=== PATIENT | female | born 1990 | race Caucasian/White ===

== ENCOUNTER 2016-05-02 07:46 | Emergency (ER) | payer SELFPAY ==
[~2016-05-02 07:46] MED LIST: AMOXICILLIN500 M3 PO; ANAPROX DS550 MG PO; CIPRO250 MG PO; EPI-PEN1 MG/ML MR; MACROBID100 M1 PO; MEDROL DOSEPAK4 MG PO; MOTRIN,RUFEN800 MG PO; MOTRIN800 MG PO; NKHM PO; PERCOCET 325 MG1 TA2 PO; PHENERGAN25 M1 PO; PNV-DHA1 SGL PO; PREDNICOT10 MG PO; PRENATAL1 TA1 PO; TRAMADOL HCL50 MG PO; ULTRAM50 MG PO
[2016-05-02] MEDS ORDERED: EPIPEN 2-PAK1 MG/ML IJ (09:06)
== END 2016-05-02 09:30 | disposition home or self-care (01) ==
LOC: ED 07:46
DX: L23.9 Allergic contact dermatitis, unspecified cause (principal); Z88.6 Allergy status to analgesic agent

== ENCOUNTER 2022-10-06 22:26 | Emergency (ER) | payer MEDICAID ==
[~2022-10-06] VITALS: Ht 170.1 cm; Wt 78.9 kg
[~2022-10-06 22:26] MED LIST changes: +EPIPEN 2-PAK1 MG/ML IJ
[2022-10-06 23:05] LABS: BILIRUBIN Negative (Negative); BLOOD 3+ (Negative); CLARITY Cloudy (Clear); COLOR Yellow (Yellow); GLUCOSE Negative (Negative); KETONE Trace (Negative); LEUKO ESTERASE 2+ (Negative); NITRITE Negative (Negative); SPECIFIC GRAVITY >= 1.030 (1.001-1.030)
[2022-10-06 23:12] LABS: URINE AMPHETAMINES Negative (1000ng/ml); URINE BARBITURATES Negative (200ng/ml); URINE BENZODIAZEPINES Negative (200ng/ml); URINE CANNABINOIDS (THC) Positive (50ng/ml); URINE COCAINE Negative (300ng/ml); URINE METHADONE Negative (300ng/ml); URINE OPIATES Negative (300ng/ml); URINE PHENCYCLIDINE Negative (25ng/ml)
[2022-10-06 23:13] LABS: BASO % 0.3 % (0.0-1.0); EOS # 0.2 10*3/uL (0.0-0.4); EOS % 1.7 % (1.0-4.0); HEMATOCRIT 45.3 % (37.0-47.0); LYMPH # 3.5 10*3/uL (1.3-4.4); LYMPH % 33.7 % (27.0-41.0); MEAN CELL VOLUME 92.3 fl (81.0-99.0); MEAN CORPUSCULAR HGB 30.3 pg (27.0-31.0); MEAN CORPUSCULAR HGB CONC 32.9 g/dl (33.0-37.0); MEAN PLATELET VOLUME 9.3 fl (9.6-12.3); MONO # 0.5 10*3/uL (0.1-1.0); MONO % 4.7 % (3.0-9.0); NEUT # 6.2 10*3/uL (2.3-7.9); NEUT % 59.4 % (47.0-73.0); PLATELET COUNT AUTOMATED 331 10*3/uL (130-400); RED BLOOD COUNT 4.91 10*6/uL (4.10-5.10); RED CELL DISTRI WIDTH 12.6 % (0-14.5); WHITE BLOOD COUNT 10.4 10*3/uL (4.8-10.8)
[2022-10-06 23:17] LABS: EPITHELIAL CELLS 31-40; RBC 41-50 rbc/hpf (0-2); WBC 31-40 wbc/hpf (0-5)
[2022-10-06 23:18] LABS: BACTERIA TRACE
[2022-10-06 23:24] LABS: ACT PARTIAL THROMBO TIME 25.8 SECONDS (20.0-32.1)
[2022-10-06 23:38] LABS: ALKALINE PHOSPHATASE 115 U/L (46-116); BUN 8 mg/dl (9-23); CHLORIDE 110 mmol/L (98-107); LIPASE 40 U/L (12-53); POTASSIUM 3.6 mmol/L (3.4-5.1); SGPT/ALT 12 U/L (10-49); TOTAL PROTEIN 7.5 gm/dL (6.0-8.0)
[2022-10-06 23:44] LABS: ETHYL ALCOHOL < 3.0 mg/dl (<3)
[2022-10-07] MEDS ORDERED: CIPRO500 MG PO (00:03)
[2022-10-07] MEDS ORDERED: METRONIDAZOLE500 M1 PO (00:03)
== END 2022-10-07 00:27 | disposition home or self-care (01) ==
LOC: ED 22:26
PROVIDERS: Internal Medicine
DX: K52.9 Noninfective gastroenteritis and colitis, unspecified (principal); J45.909 Unspecified asthma, uncomplicated; F31.9 Bipolar disorder, unspecified; Z88.6 Allergy status to analgesic agent; Z98.890 Other specified postprocedural states; Z79.899 Other long term (current) drug therapy

== ENCOUNTER → 2022-11-30 | Outpatient (CLI) | payer MEDICAID ==
[~2022-11-30] MED LIST changes: +CIPRO500 MG PO; +METRONIDAZOLE500 M1 PO
[2022-11-30 09:53] LABS: HEMATOCRIT 44.4 % (37.0-47.0); MEAN CELL VOLUME 90.4 fl (81.0-99.0); MEAN CORPUSCULAR HGB 30.3 pg (27.0-31.0); MEAN CORPUSCULAR HGB CONC 33.6 g/dl (33.0-37.0); MEAN PLATELET VOLUME 9.1 fl (9.6-12.3); RED BLOOD COUNT 4.91 10*6/uL (4.10-5.10); RED CELL DISTRI WIDTH 12.3 % (0-14.5); WHITE BLOOD COUNT 6.6 10*3/uL (4.8-10.8)
[2022-11-30 10:59] LABS: ALKALINE PHOSPHATASE 102 U/L (46-116); BUN 7 mg/dl (9-23); CHLORIDE 109 mmol/L (98-107); CHOLESTEROL 120 mg/dL (<200); FREE T4 1.07 ng/dl (0.89-1.76); LDL CHOLESTEROL 56 mg/dL (9-159); POTASSIUM 3.9 mmol/L (3.4-5.1); SGPT/ALT 13 U/L (10-49); TOTAL PROTEIN 7.2 gm/dL (6.0-8.0); TRIGLYCERIDES 157 mg/dl (<150)
[2022-11-30 11:21] LABS: VITAMIN D, 25-HYDROXY 29.2 ng/mL (30-100)
== END | disposition home or self-care (01) ==
LOC: LAB 09:35
PROVIDERS: ATTEND Family Medicine
DX: Z00.00 Encounter for general adult medical examination without abnormal findings (principal); E03.9 Hypothyroidism, unspecified; E55.9 Vitamin D deficiency, unspecified; M25.50 Pain in unspecified joint; M25.569 Pain in unspecified knee; L68.0 Hirsutism; M25.529 Pain in unspecified elbow

== ENCOUNTER → 2022-12-21 | Outpatient (CLI) | payer MEDICAID | END | disposition home or self-care (01) | LOC: CT 07:39 | PROVIDERS: ATTEND Family Medicine | DX: G44.221 Chronic tension-type headache, intractable (principal) ==

== ENCOUNTER → 2023-01-14 | Outpatient (CLI) | payer MEDICAID | END | disposition home or self-care (01) | LOC: MRI 00:48 | PROVIDERS: ATTEND Family Medicine | DX: J32.3 Chronic sphenoidal sinusitis (principal); R29.6 Repeated falls; M62.81 Muscle weakness (generalized) ==

== ENCOUNTER 2023-08-01 16:57 | Emergency (ER) | payer MEDICAID ==
[~2023-08-01] VITALS: Ht 170.1 cm; Wt 77.1 kg
[2023-08-01] MEDS ORDERED: PREDNISONE10 M1 PO (18:02)
[2023-08-02] MEDS ORDERED: ANECREAM5 GM T (13:11)
== END 2023-08-01 18:30 | disposition home or self-care (01) ==
LOC: ED 16:57
DX: M25.542 Pain in joints of left hand (principal); J45.909 Unspecified asthma, uncomplicated; F31.9 Bipolar disorder, unspecified; Z88.6 Allergy status to analgesic agent

== ENCOUNTER → 2023-08-27 | Outpatient (CLI) | payer MEDICAID ==
[~2023-08-27] MED LIST changes: +ANECREAM5 GM T; +PREDNISONE10 M1 PO
== END | disposition home or self-care (01) ==
LOC: RAD 13:33
PROVIDERS: ATTEND Family Medicine
DX: R10.30 Lower abdominal pain, unspecified (principal)

== ENCOUNTER → 2024-01-21 | Outpatient (CLI) | payer MEDICAID ==
[2024-01-21 09:20] LABS: HEMATOCRIT 47.9 % (37.0-47.0); MEAN CELL VOLUME 91.1 fl (81.0-99.0); MEAN CORPUSCULAR HGB 29.5 pg (27.0-31.0); MEAN CORPUSCULAR HGB CONC 32.4 g/dl (33.0-37.0); MEAN PLATELET VOLUME 9.3 fl (9.6-12.3); RED BLOOD COUNT 5.26 10*6/uL (4.10-5.10); RED CELL DISTRI WIDTH 12.5 % (0-14.5); WHITE BLOOD COUNT 12.2 10*3/uL (4.8-10.8)
[2024-01-21 09:52] LABS: ALKALINE PHOSPHATASE 130 U/L (46-116); BUN 12 mg/dl (9-23); CHLORIDE 106 mmol/L (98-107); CHOLESTEROL 125 mg/dL (<200); CPK 51 U/L (34-171); LDL CHOLESTEROL 67 mg/dL (9-159); SGPT/ALT 26 U/L (5-49); TOTAL PROTEIN 8.1 gm/dL (6.0-8.0); TRIGLYCERIDES 115 mg/dl (<150)
[2024-01-21 09:53] LABS: VITAMIN D, 25-HYDROXY 23.8 ng/mL (30-100)
[2024-01-22 05:07] LABS: HBsAG SCREEN Negative (Negative); HCV Ab Non Reactive (Non Reactive); HEP B CORE Ab, IgM Negative (Negative)
== END | disposition home or self-care (01) ==
LOC: LAB 08:48
PROVIDERS: ATTEND Family Medicine
DX: E55.9 Vitamin D deficiency, unspecified (principal); E78.00 Pure hypercholesterolemia, unspecified; R53.83 Other fatigue; M25.59 Pain in other specified joint; M79.10 Myalgia, unspecified site

== ENCOUNTER → 2024-03-08 | Outpatient (CLI) | payer MEDICAID ==
[2024-03-08 10:44] LABS: HEMATOCRIT 45.6 % (37.0-47.0); MEAN CELL VOLUME 91.8 fl (81.0-99.0); MEAN CORPUSCULAR HGB 29.4 pg (27.0-31.0); MEAN PLATELET VOLUME 9.3 fl (9.6-12.3); RED BLOOD COUNT 4.97 10*6/uL (4.10-5.10); RED CELL DISTRI WIDTH 12.4 % (0-14.5)
== END | disposition home or self-care (01) ==
LOC: LAB 10:28
PROVIDERS: ATTEND Family Medicine
DX: M79.10 Myalgia, unspecified site (principal); M25.50 Pain in unspecified joint; K58.9 Irritable bowel syndrome, unspecified; G80.3 Athetoid cerebral palsy

== ENCOUNTER 2024-04-19 22:23 | Emergency (ER) | payer MEDICAID ==
[~2024-04-19] VITALS: Ht 170.1 cm; Wt 77.1 kg
== END 2024-04-20 00:56 | disposition home or self-care (01) ==
LOC: ED 22:23
DX: S92.421A Displaced fracture of distal phalanx of right great toe, initial encounter for closed fracture (principal); J45.909 Unspecified asthma, uncomplicated; F31.9 Bipolar disorder, unspecified; F17.200 Nicotine dependence, unspecified, uncomplicated; Z88.6 Allergy status to analgesic agent; Z98.890 Other specified postprocedural states; W20.8XXA Other cause of strike by thrown, projected or falling object, initial encounter; Y93.89 Activity, other specified; Y92.89 Other specified places as the place of occurrence of the external cause; Y99.8 Other external cause status

== ENCOUNTER → 2024-06-02 | Outpatient (CLI) | payer MEDICAID ==
[2024-06-02 12:08] LABS: HEMATOCRIT 46.2 % (37.0-47.0); MEAN CELL VOLUME 90.9 fl (81.0-99.0); MEAN CORPUSCULAR HGB 29.7 pg (27.0-31.0); MEAN CORPUSCULAR HGB CONC 32.7 g/dl (33.0-37.0); MEAN PLATELET VOLUME 9.4 fl (9.6-12.3); RED BLOOD COUNT 5.08 10*6/uL (4.10-5.10); RED CELL DISTRI WIDTH 12.6 % (0-14.5); WHITE BLOOD COUNT 10.8 10*3/uL (4.8-10.8)
[2024-06-02 12:48] LABS: ALKALINE PHOSPHATASE 117 U/L (46-116); BUN 10 mg/dl (9-23); CHLORIDE 105 mmol/L (98-107); CPK 55 U/L (34-171); POTASSIUM 4.1 mmol/L (3.4-5.1); SGPT/ALT 47 U/L (5-49); TOTAL PROTEIN 7.4 gm/dL (6.0-8.0)
[2024-06-02 12:51] LABS: VITAMIN D, 25-HYDROXY 20.6 ng/mL (30-100)
[2024-06-03 05:06] LABS: HBsAG SCREEN Negative (Negative); HCV Ab Non Reactive (Non Reactive); HEP B CORE Ab, IgM Negative (Negative)
== END | disposition home or self-care (01) ==
LOC: LAB 11:45
PROVIDERS: ATTEND Family Medicine
DX: R53.83 Other fatigue (principal); M26.623 Arthralgia of bilateral temporomandibular joint; M25.50 Pain in unspecified joint; M79.10 Myalgia, unspecified site

== ENCOUNTER → 2024-08-01 | Outpatient (CLI) | payer MEDICAID | END | disposition home or self-care (01) | LOC: RAD 11:39 | PROVIDERS: ATTEND Family Medicine | DX: M25.561 Pain in right knee (principal) ==